=== PATIENT | male | born 2000 | race Caucasian/White ===

== ENCOUNTER 2020-06-13 10:42 | Emergency (ER) | payer MEDICAID ==
[~2020-06-13] VITALS: Ht 177.8 cm; Wt 81.8 kg
[2020-06-13] MEDS ORDERED: IBUPROFEN 800 MG TABLET PO ONE (12:30)
[2020-06-13 12:33] VITALS: BP 154/68
== END 2020-06-13 12:48 | disposition home or self-care (01) ==
LOC: EMS 10:47
DX: M25.511 Pain in right shoulder (principal); F17.210 Nicotine dependence, cigarettes, uncomplicated
CPT/HCPCS: 99283

== ENCOUNTER 2021-04-01 11:10 | Emergency (ER) | payer MEDICAID ==
[~2021-04-01] VITALS: Ht 177.8 cm; Wt 88.6 kg
[2021-04-01 11:38] VITALS: BP 111/45
[2021-04-01 13:40] LABS: COVID AG,FIA SOURCE NASOPHARYNGEAL
[2021-04-01] MEDS ORDERED: LIDOCAINE 2% VISCOUS 15 ML SOLUTION UDCUP PO ONE (14:45)
[2021-04-01] MEDS ORDERED: DEXAMETHASONE 4 MG TABLET PO ONE (14:45)
[2021-04-01] MEDS ORDERED: ACETAMINOPHEN 500 MG TABLET PO ONE (15:15)
== END 2021-04-01 18:08 | disposition home or self-care (01) ==
LOC: EMS 11:10
DX: J02.9 Acute pharyngitis, unspecified (principal); F17.210 Nicotine dependence, cigarettes, uncomplicated; F12.90 Cannabis use, unspecified, uncomplicated; Z20.822 Contact with and (suspected) exposure to COVID-19
CPT/HCPCS: 36415; 86308; 87426; 87430; 99284; J8540